=== PATIENT | male | born 1955 | race Caucasian/White ===

== ENCOUNTER 2018-12-18 11:39 | Emergency (ER) | payer MEDICARE ==
[2018-12-18 13:23] VITALS: BP 135/88
--- NOTE | 2018-12-18 13:34 | UC ---
Ear Complaint HPI - HPI Summary HPI Summary: started feeling pain left ear 2 days ago, now radiating into jaw no recent illness but did swim in pond 7-10 days ago - History of Current Complaint Chief Complaint: UCEar Stated Complaint: EAR PAIN Time Seen by Provider: 12/18/18 13:24 Hx Obtained From: Patient Onset/Duration: Gradual Onset Severity Initially: Mild Severity Currently: Mild Pain Intensity: 3 Aggravating Factors: Nothing Alleviating Factors: Nothing Associated Signs/Symptoms: Positive: Hearing Loss - mnimal hearing loss. Negative: Discharge, Foreign Body Sensation, Trauma to Ear - Allergies/Home Medications Allergies/Adverse Reactions: Allergies Allergy/AdvReac Type Severity Reaction Status Date / Time No Known Allergies Allergy Verified 12/18/18 13:23 Home Medications: Home Medications Zaleplon (NF) [Sonata (NF)] 5 mg PO DAILY 12/18/18 [History Confirmed 12/18/18] PMH/Surg Hx/FS Hx/Imm Hx Previously Healthy: Yes Psychological History: Anxiety - Surgical History Surgical History: Yes Surgery Procedure, Year, and Place: 1999- - umbilical hernia repair, Retinal laser surgery X2- small retinal tears r/t vitreous detachment - Family History Known Family History: Positive: Non-Contributory - Social History Occupation: Employed Full-time Lives: With Family Alcohol Use: Occasionally Substance Use Type: None Smoking Status (MU): Never Smoked Tobacco Review of Systems All Other Systems Reviewed And Are Negative: Yes Constitutional: Positive: Negative. Negative: Fever, Chills ENT: Positive: Ear Ache. Negative: Sore Throat, Sinus Congestion Respiratory: Positive: Negative. Negative: Cough Cardiovascular: Positive: Negative. Negative: Chest Pain Neurological: Positive: Negative. Negative: Headache Psychological: Positive: Negative Is Patient Immunocompromised?: No Physical Exam Triage Information Reviewed: Yes Appearance: Well-Appearing, No Pain Distress, Well-Nourished Vital Signs: Initial Vital Signs Temp 98.9 F 12/18/18 13:20 Pulse 72 12/18/18 13:20 Resp 16 12/18/18 13:20 BP 135/88 12/18/18 13:20 Pulse Ox 100 12/18/18 13:20 Vital Signs Reviewed: Yes Eyes: Positive: Conjunctiva Clear ENT: Positive: Pharynx normal, Other - L canal partially occluded with moist wet material, distal canal is eythemic R canal and TM normal Neck exam: Normal Neck: Positive: Supple, Nontender, No Lymphadenopathy Respiratory Exam: Normal Respiratory: Positive: Lungs clear Cardiovascular Exam: Normal Cardiovascular: Positive: RRR Skin Exam: Normal Ear Complaint Course/Dx - Course Course Of Treatment: L ear canal irrigated with warm tap water and white fluffy material with many small black dots removed from canal. canal is erythemic, not swollen, TM dull and gordon - Differential Dx/Diagnosis Differential Diagnosis/HQI/PQRI: Cerumen Impaction, Foreign Body, Otitis Externa , Otitis Media Provider Diagnosis: Otitis externa Discharge - Sign-Out/Discharge Documenting (check all that apply): Patient Departure All imaging exams completed and their final reports reviewed: No Studies - Discharge Plan Condition: Good Disposition: HOME Prescriptions: Acetic Acid 3 drop OTIC QID #15 ml Patient Education Materials: Otitis Externa (ED) Referrals: Reg Abrhaam MD [Primary Care Provider] - 3 Days (for recheck ear infection) Additional Instructions: instill ear drops into left ear as directed. use cotton ball to prevent drops from leaking out return here or to your primary care office to have ear rechecked in 3 days use Tylenol as directed for pain if needed - Billing Disposition and Condition Condition: GOOD Disposition: Home - Attestation Statements Provider Attestation: I was available for consult. This patient was seen by the [facility]. The patient was not presented to , seen by or examined by -Manohar Peguero MD
== END 2018-12-18 14:20 | disposition home or self-care (01) ==
LOC: UCEAST 11:39
DX: H60.92 Unspecified otitis externa, left ear (principal)
CPT/HCPCS: 99212; G0463

== ENCOUNTER 2018-12-31 12:13 | Emergency (ER) | payer MEDICARE ==
[2018-12-31 12:27] VITALS: BP 130/79
--- NOTE | 2018-12-31 12:46 | UC ---
Ear Complaint HPI - HPI Summary HPI Summary: 63-year-old male presents for persistent sensation of left ear feeling clogged and mild pain. Patient was seen at this facility initially on 12/18/2018 for same complaints, the ear was irrigated for what was described as "white fluffy material with black dots", and was placed on acetic acid otic drops. He returned on 12/22/2018 for recheck of symptoms. Was noted to still have some white discharge within the ear canal with mild erythema. The TM was noted to be intact and non-erythematous. He was placed on ofloxacin otic drops at that time. States he has completed the full course of ofloxacin otic and has had some improvement in the pain but the ear feels more clogged. Denies fever, chills, URI syptoms, tinnitus, or vertigo. - History of Current Complaint Chief Complaint: UCEar Stated Complaint: EAR PAIN Time Seen by Provider: 12/31/18 12:43 Hx Obtained From: Patient Pain Intensity: 2 - Allergies/Home Medications Allergies/Adverse Reactions: Allergies Allergy/AdvReac Type Severity Reaction Status Date / Time No Known Allergies Allergy Verified 12/22/18 10:16 PMH/Surg Hx/FS Hx/Imm Hx - Additional Past Medical History Additional PMH: Insomnia Psychological History: Anxiety - Surgical History Surgical History: Yes Surgery Procedure, Year, and Place: [place] [facility] [place], Retinal laser surgery X2- small retinal tears r/t vitreous detachment - Family History Known Family History: Positive: Non-Contributory - Social History Occupation: Employed Full-time Lives: With Family Alcohol Use: Occasionally Substance Use Type: None Smoking Status (MU): Never Smoked Tobacco Review of Systems All Other Systems Reviewed And Are Negative: Yes Constitutional: Negative: Fever, Chills Eyes: Negative: Drainage, Eye Redness ENT: Positive: Other - See HPI. Negative: Sore Throat, Nasal Discharge, Sinus Congestion, Sinus Pain/Tenderness Respiratory: Negative: Cough Cardiovascular: Positive: Negative Gastrointestinal: Positive: Negative Genitourinary: Positive: Negative Musculoskeletal: Positive: Negative Neurological: Positive: Negative Is Patient Immunocompromised?: No Physical Exam - Summary Physical Exam Summary: GENERAL APPEARANCE: Well developed, well nourished, alert and cooperative, and appears to be in no acute distress. EYES: Conjunctiva clear. No drainage EARS: The right external auditory canals and tympanic membranes are clear. The left external ear canal has a mixture of white and gordon colored discharge deep in ear canal. Unable to adequately visualize the TM. Hearing is grossly intact. NOSE: No nasal discharge. THROAT: Pharynx normal No tonsilar inflammation, swelling, exudate, or lesions. Uvula midline. Oral cavity normal. Teeth and gingiva in good general condition. NECK: Neck supple, non-tender without lymphadenopathy. CARDIAC: Normal S1 and S2. No S3, S4 or murmurs. Rhythm is regular. There is no peripheral edema, cyanosis or pallor. Extremities are warm and well perfused. Capillary refill is less than 2 seconds. Peripheral pulses intact. LUNGS: Clear to auscultation without rales, rhonchi, wheezing or diminished breath sounds. ABDOMEN: Positive bowel sounds. Soft, nondistended, nontender. No guarding or rebound. No masses or hepatosplenomegally. MUSKULOSKELETAL: ROM intact to all extremities. No joint erythema or tenderness. Normal muscular development. Normal gait. SKIN: Skin normal color, texture and turgor with no lesions or eruptions. Triage Information Reviewed: Yes Vital Signs: Initial Vital Signs Temp 97.8 F 12/31/18 12:25 Pulse 72 12/31/18 12:25 Resp 16 12/31/18 12:25 BP 130/79 12/31/18 12:25 Pulse Ox 100 12/31/18 12:25 Vital Signs Reviewed: Yes Ear Complaint Course/Dx - Course Course Of Treatment: 63-year-old male presents for persistent sensation of left ear feeling clogged and mild pain. Patient was seen at this facility initially on 12/18/2018 for same complaints, the ear was irrigated for what was described as "white fluffy material with black dots", and was placed on acetic acid otic drops. He returned on 12/22/2018 for recheck of symptoms. Was noted to still have some white discharge within the ear canal with mild erythema. The TM was noted to be intact and non-erythematous. He was placed on ofloxacin otic drops at that time. States he has completed the full course of ofloxacin otic and has had some improvement in the pain but the ear feels more clogged. Denies fever, chills, URI syptoms, tinnitus, or vertigo. Afebrile. VSS. On exam patient was noted to have a mixture of white and gordon colored discharge deep in ear canal with some mild erythema. I was unable to adequately visualize the TM. Remainder of exam was unremarkable. I attempted to remove some of the drainage to better visualize the TM by first using a lighted currette and then with alligator forceps but patient complained of pain with even gentle pressure. Because I was unable to fully visualize the TM irrigation of the canal was derferred. I am recommending follow up with ENT in 5-7 days. Will continue him on the ofloxacin otic drops 5 drops into the left ear daily. Anticipatory guidance and warning symptoms reviewed with the patient. Verbalizes understanding and agrees with POC. - Differential Dx/Diagnosis Differential Diagnosis/HQI/PQRI: Cellulitis, Cerumen Impaction, Otitis Externa, Otitis Media, Perforated TM Provider Diagnosis: Otitis externa of left ear Discharge ED - Sign-Out/Discharge Documenting (check all that apply): Patient Departure All imaging exams completed and their final reports reviewed: No Studies - Discharge Plan Condition: Stable Disposition: HOME Prescriptions: Ofloxacin 0.3% (Ear Drop)* [Floxin 0.3% OTIC.COLLEEN (Ear Drop)] 5 drop LEFT EAR DAILY #1 btl Patient Education Materials: Otitis Externa (ED) Referrals: Reg Abraham MD [Primary Care Provider] - Sly Yun MD [Medical Doctor] - 7 Days (Call for appointment) Additional Instructions: You continue to have some discharge and mild redness in the ear canal. I could not adequately visualize the ear drum therefore I feel you should be evaluated by the ear, nose, and throat (ENT) specialist. Continue using the ofloxacin otic drops 5 drops into the left ear daily for 7 days. Follow up with ENT in 5-7 days for further evaluation. Seek immediate medical attention in the emergency room if you develop fever greater than 100.5 F, have severe pain in the ear, blood draining from the ear, or any worsening of symptoms. - Billing Disposition and Condition Condition: STABLE Disposition: Home
== END 2018-12-31 13:16 | disposition home or self-care (01) ==
LOC: UCEAST 12:13
DX: H60.92 Unspecified otitis externa, left ear (principal); F41.9 Anxiety disorder, unspecified
CPT/HCPCS: 99212; G0463